=== PATIENT | female | born 1975 | race Caucasian/White ===

== ENCOUNTER 2020-08-13 06:59 | Emergency (ER) | payer MEDICAID ==
[~2020-08-13] VITALS: Ht 167.6 cm; Wt 80.3 kg
--- NOTE | 2020-08-13 07:44 | NUR ---
PT COMES IN TODAY C/O SOB, FATIGUE "IM TRYING TO BREATH AND ITS LIKE TAKING THE LIFE OUT OF ME. I CANT EAT. I WANT TO DRINK WATER BUT EVERYTIME I DRINK I THROW UP". PT STATES N/V/D X1WEEK. COVID TEST - 08/12/20. MONITORS CONNECTED. WARM BLANKETS PROVIDED. CALL LIGHT W/IN REACH
--- NOTE | 2020-08-13 07:46 | NUR ---
PROVIDER AT BEDSIDE FOR ASSESSMENT
[2020-08-13] MEDS ORDERED: HYDR-2995 PO (08:03)
[2020-08-13] MEDS ORDERED: SERT25TA PO (08:03)
--- NOTE | 2020-08-13 08:05 | NUR ---
PT RESTING ON ANA LILIA. MED REC COMPLETE. PT STATES NO NEEDS AT THIS TIME. CALL LIGHT W/IN REACH. WILL CONTINUE TO MONITOR
--- NOTE | 2020-08-13 08:24 | NUR ---
PT AMBULATED TO DISCHARGE W/STEADY GAIT. PT ENCOURAGED TO FOLLOWUP DISCUSSED. PT EDUCATED TO RETURN TO THE ED W/WORSENING SYMPTOMS. UPDATED RX GIVEN PER PROVIDER
[2020-08-13 08:25] VITALS: BP 130/87
== END 2020-08-13 08:26 | disposition home or self-care (01) ==
LOC: ED 07:44
DX: B34.9 Viral infection, unspecified (principal); M79.10 Myalgia, unspecified site; R94.31 Abnormal electrocardiogram [ECG] [EKG]; J44.9 Chronic obstructive pulmonary disease, unspecified; F17.200 Nicotine dependence, unspecified, uncomplicated
CPT/HCPCS: 71045; 93005; 99283